=== PATIENT | female | born 1950 | race Two or more races ===

== ENCOUNTER 2018-05-19 16:10 | Outpatient (CLI) | payer MEDICARE ==
[2018-05-19] MEDS ORDERED: LACT1CAP69 PO (18:16)
[2018-05-19] MEDS ORDERED: HYDR-548 PO (18:16)
[2018-05-19] MEDS ORDERED: LOSA1TAB36 PO (18:16)
[2018-05-19] MEDS ORDERED: VIMOVO PO (18:16)
== END 2018-05-19 23:59 | disposition home or self-care (01) ==
LOC: CT 16:10
DX: K57.30 Diverticulosis of large intestine without perforation or abscess without bleeding (principal); K80.20 Calculus of gallbladder without cholecystitis without obstruction; N20.0 Calculus of kidney; L02.211 Cutaneous abscess of abdominal wall

== ENCOUNTER 2018-05-19 17:39 | Emergency (ER) | payer MEDICARE ==
[~2018-05-19] VITALS: Ht 147.3 cm; Wt 67.1 kg
--- NOTE | 2018-05-19 18:00 | NUR ---
Pt was brought to ER post outpatient CT scan, at bedside on arrival.
[2018-05-19] MEDS ORDERED: HYDR-548 PO (18:16)
[2018-05-19] MEDS ORDERED: LACT1CAP69 PO (18:16)
[2018-05-19] MEDS ORDERED: VIMOVO PO (18:16)
[2018-05-19] MEDS ORDERED: LOSA1TAB36 PO (18:16)
--- NOTE | 2018-05-19 18:50 | NUR ---
Patient discharged to home in stable conditon with daughter. Written and verbal after care instructions given. Patient and daughter verbalized understanding of instructions. Pt was given follow information for wound care center at [facility] per request. Pt. ambulatory with walker.
== END 2018-05-19 18:56 | disposition home or self-care (01) ==
LOC: ER 17:40
DX: Z48.01 Encounter for change or removal of surgical wound dressing (principal); R10.9 Unspecified abdominal pain
CPT/HCPCS: 87070; A4217; A4663; J3490